=== PATIENT | male | born 1960 | race Caucasian/White ===

== ENCOUNTER 2018-07-20 02:03 | Emergency (ER) | payer OTHER ==
--- NOTE | 2018-07-20 03:55 | EDM.PDOC ---
ED HPI GENERAL MEDICAL PROBLEM - General Chief Complaint: Upper Extremity Injury/Pain Stated Complaint: HURT LEFT ARM Time Seen by Provider: 07/20/18 03:53 - History of Present Illness INITIAL COMMENTS - FREE TEXT/NARRATIVE: HISTORY AND PHYSICAL: History of present illness: Patient 57-year-old male presents with concern of left shoulder injury he denies other tremor concern Review of systems: As per history of present illness and below otherwise all systems reviewed and negative. Past medical history: As per history of present illness and as reviewed below otherwise noncontributory. Surgical history: As per history of present illness and as reviewed below otherwise noncontributory. Social history: No reported history of drug or alcohol abuse. Family history: As per history of present illness and as reviewed below otherwise noncontributory. Physical exam: HEENT: Atraumatic, normocephalic, pupils reactive, negative for conjunctival pallor or scleral icterus, mucous membranes moist, throat clear, neck supple, nontender, trachea midline. Lungs: Clear to auscultation, breath sounds equal bilaterally, chest nontender. Heart: S1S2, regular, negative for clicks, rubs, or JVD. Abdomen: Soft, nondistended, nontender. Negative for masses or hepatosplenomegaly. Negative for costovertebral tenderness. Pelvis: Stable nontender. Genitourinary: Deferred. Rectal: Deferred. Extremities: Left shoulder without gross deformity crepitation or point tenderness limited range of motion secondary to pain CMS neurovascular unremarkable Neuro: Awake, alert, oriented. Cranial nerves II through XII unremarkable. Cerebellum unremarkable. Motor and sensory unremarkable throughout. Exam nonfocal. Diagnostics: X-ray left shoulder Therapeutics: None Impression: #1 shoulder injury Definitive disposition and diagnosis as appropriate pending reevaluation and review of above. left shoulder Pain Score (Numeric/FACES): 10 - Related Data Allergies Allergy/AdvReac Type Severity Reaction Status Date / Time No Known Allergies Allergy Verified 10/20/13 12:32 MDT Past Medical History Cardiovascular History: Reports: Hypertension - Infectious Disease History Infectious Disease History: Reports: Chicken Pox Social & Family History - Family History Family Medical History: Noncontributory - Tobacco Use Smoking Status *Q: Current Every Day Smoker Years of Tobacco use: 3 Packs/Tins Daily: 1 - Caffeine Use Caffeine Use: Reports: Coffee, Soda - Recreational Drug Use Recreational Drug Use: No Review of Systems - Review of Systems Review Of Systems: ROS reveals no pertinent complaints other than HPI. ED EXAM, GENERAL - Physical Exam Exam: See Below (See dictation) Course - Vital Signs Last Recorded V/S: Last Vital Signs Temp 36.6 C 07/20/18 02:13 Pulse 77 07/20/18 03:31 Resp 18 07/20/18 03:31 BP 176/87 H 07/20/18 03:31 Pulse Ox 98 07/20/18 03:31 - Orders/Labs/Meds Orders: Active Orders 24 hr Category Date Time Status Shoulder Comp Lt [CR] Stat Exams 07/20/18 02:25 Taken Departure - Departure Time of Disposition: 03:54 Disposition: Home, Self-Care 01 Condition: Good Clinical Impression: Shoulder injury - Discharge Information Referrals: PCP,None [Primary Care Provider] - Additional Instructions: The following information is given to patients seen in the emergency department who are being discharged to home. This information is to outline your options for follow-up care. We provide all patients seen in our emergency department with a follow-up referral. The need for follow-up, as well as the timing and circumstances, are variable depending upon the specifics of your emergency department visit. If you don't have a primary care physician on staff, we will provide you with a referral. We always advise you to contact your personal physician following an emergency department visit to inform them of the circumstance of the visit and for follow-up with them and/or the need for any referrals to a consulting specialist. The emergency department will also refer you to a specialist when appropriate. This referral assures that you have the opportunity for followup care with a specialist. All of these measure are taken in an effort to provide you with optimal care, which includes your followup. Under all circumstances we always encourage you to contact your private physician who remains a resource for coordinating your care. When calling for followup care, please make the office aware that this follow-up is from your recent emergency room visit. If for any reason you are refused follow-up, please contact the [facility] emergency department at and asked to speak to the emergency department charge nurse. Follow-up primary medical doctor as needed as discussed return as needed discussed Motrin/Tylenol as directed - My Orders Last 24 Hours: My Active Orders 07/20/18 02:25 Shoulder Comp Lt [CR] Stat - Assessment/Plan Last 24 Hours: My Active Orders 07/20/18 02:25 Shoulder Comp Lt [CR] Stat
--- NOTE | 2018-07-21 13:41 | CR ---
EXAM DATE: 07/20/18 PATIENT'S AGE: 57 Patient: NAINA MCCURDY Facility: [facility] Site . Site : [id number] Study: XRay-Shoulder Left -07/20/2018 3:15:14 AM Ordering Physician: Doctor Mairn Final Report: Indication: Pain after trauma Technique: Two-view left shoulder Comparison: None Findings: Bones: Alignment is normal. No fractures or bone lesions. Joint spaces: Mild degenerative changes in the acromioclavicular joint. Soft tissues: Unremarkable. Impression: No acute abnormality. Dictated by Chata Jordan MD @ Jul 20 2018 3:17AM Signed by: Chata Jordan MD @07/20/2018 3:17:46 AM (Electronic Signature) Report Signed by Proxy. [facility]
== END 2018-07-20 04:00 | disposition home or self-care (01) ==
LOC: MW.ED 02:03
DX: S49.92XA Unspecified injury of left shoulder and upper arm, initial encounter (principal); F17.210 Nicotine dependence, cigarettes, uncomplicated; I10 Essential (primary) hypertension; X58.XXXA Exposure to other specified factors, initial encounter
CPT/HCPCS: 73030-26-LT; 73030-LT; 99283